=== PATIENT | female | born 1995 | race Caucasian/White ===

== ENCOUNTER 2025-01-09 20:14 | Inpatient (IN) | payer OTHER ==
--- NOTE | 2025-01-09 21:48 | RAD REPORT ---
EXAMINATION: Transvaginal Study Probe CLINICAL INDICATION: Pelvic pain. Left pelvic pain TECHNIQUE: Real-time ultrasonography of the pelvis was performed transvaginally. Color and spectral D oppler evaluation of the ovaries was performed. COMPARISON: No prior exam. FINDINGS: The uterus measures 7 x 2 x 3 cm The endometrial stripe is poorly visualized but does not appear to be a fibroid seen. Right ovary normal in size and echotexture. Left ovary normal in size and echotexture. Normal blood flow in each ovary. Right and left adnexa unremarkable No significant free fluid IMPRESSION: Unremarkable pelvic ultrasound
[2025-01-09 21:59] LABS: Absolute Eosinophils 0.3 K/uL (0-0.5); Absolute Monocytes 0.6 K/uL (0.1-1.3); Absolute Neutrophil 12.4 K/uL (1.8-8.0); Basophils % 0.2 % (0-1.3); Hematocrit 39.4 % (36.0-45.0); Hemoglobin 13.1 g/dL (12.0-15.0); Lymphocytes % 13.1 % (15.3-44.8); MCH 29.7 pg (27.0-35.0); MCHC 33.3 g/dL (32.0-36.0); MCV 89.4 fL (80-100); MPV 8.4 fL (7.6-11.3); Monocytes % 4.1 % (3.3-12.3); Neutrophils % 80.6 % (41.7-73.7); Platelets 329 thou/uL (152-406); RBC Red Blood Cell Count 4.41 M/uL (3.86-4.86); Red Cell Distribution Width 12.8 % (12.1-15.2)
[2025-01-09 22:04] LABS: Specific Gravity 1.005 (1.005-1.030)
[2025-01-09 22:05] LABS: Specific Gravity 1.005 (1.005-1.030); Sqamous Epithelial <5 /HPF (None Seen); Urine Bacteria <20 /HPF (<20); Urine Bilirubin NEGATIVE (Negative); Urine Blood Negative (Negative); Urine Clarity Turbid (Clear); Urine Color Colorless (Yellow); Urine Crystals Unidentified Few /HPF (None Seen); Urine Culture Reflex Order NOT NEEDED; Urine Glucose NEGATIVE (Negative); Urine Ketones NEGATIVE (Negative); Urine Microscopic Reflex YN ORDER UMIC; Urine Nitrite NEGATIVE (Negative); Urine Protein NEGATIVE (Negative); Urine RBC <5 /HPF (None Seen); Urine Urobilinogen Normal (Normal); Urine WBC <5 /HPF (<5); Urine Yeast (Budding) Trace /HPF (None Seen)
[2025-01-09 22:20] LABS: Albumin 3.7 g/dL (3.4-5.0); Albumin/Globulin Ratio 0.9 (1.1-1.8); Anion Gap 7.7 mEq/L (5.0-15.0); Bilirubin Total 0.4 mg/dL (0.2-1.0); Globulin 4.1 g/dL (2.3-3.5); Potassium 3.7 mEq/L (3.5-5.1); Protein, Total 7.8 g/dL (6.4-8.2)
[2025-01-09] MEDS ORDERED: KETOROLAC 30 MG/ML INJ ONE (23:12)
[2025-01-09] MEDS ORDERED: DICYCLOMINE HCL 10 MG CAP ONE (23:12)
[2025-01-09] MEDS ORDERED: NA CHLORIDE 0.9% 1,000 ML ONE (23:13)
[2025-01-09] MEDS ORDERED: METOCLOPRAMIDE 5 MG TAB ONE (23:13)
--- NOTE | 2025-01-10 00:43 | ER ---
Nurse's Notes [facility] Name: Saba Gibbons Age: 29 yrs Sex: Female : 1995 Arrival Date: 01/09/2025 Time: 20:14 Bed 7 Private MD: Diagnosis: Acute appendicitis with localized peritonitis Presentation: 01/09 20:45 Chief complaint: Patient states: LEFT FLANK PAIN AND RADIATES TO LOWER ABDOMEN. FOR THE br2 LAST 2 DAYS. WORSE TODAY. PT WAS SENT TO ER BY URGENT CARE. DENIES N/V/D. 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 Coronavirus screen: Client denies travel out of the [place] in the last 14 days. Ebola Screen: Patient denies exposure to infectious person. Initial Sepsis Screen: Does the patient meet any 2 criteria? No. Patient's initial sepsis screen is negative. Does the patient have a suspected source of infection? No. Patient's initial sepsis screen is negative. Risk Assessment: Do you want to hurt yourself or someone else? Patient reports no desire to harm self or others. Onset of symptoms was January 07, 2025. 20:45 Method Of Arrival: Ambulatory br2 20:45 Acuity: AISHA 3 br2 Triage Assessment: 20:48 General: Appears in no apparent distress. comfortable, Behavior is calm, cooperative. br2 Pain: Complains of pain in left low back Pain radiates to right lower quadrant and left lower quadrant Pain currently is 7 out of 10 on a pain scale. GI: Reports lower abdominal pain, LEFT FLANK PAIN. 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 - Infectious Disease History:: Denies. - Social history:: Smoking status: Patient denies any tobacco usage or history of. Patient uses alcohol, occasionally. Patient/guardian denies using street drugs. - Family history:: not pertinent. Screenin/21 00:00 [facility] ED Fall Risk Assessment (Adult) History of falling in the last 3 months, jb4 including since admission No falls in past 3 months (0 pts) Confusion or Disorientation No (0 pts) Intoxicated or Sedated No (0 pts) Impaired Gait No (0 pts) Mobility Assist Device Used No (0 pt) Altered Elimination No (0 pt) Score/Fall Risk Level 0 - 2 = Low Risk Oriented to surroundings, Maintained a safe environment. Abuse screen: Denies threats or abuse. Nutritional screening: No deficits noted. Tuberculosis screening: No symptoms or risk factors identified. Assessment: 01/09 23:58 Reassessment: Patient appears in no apparent distress at this time. Patient and/or jb4 family updated on plan of care and expected duration. Pain level reassessed. Patient is alert, oriented x 3, equal unlabored respirations, skin warm/dry/pink. Vital Signs: 20:45 BP 128 / 95; Pulse 105; Resp 18; Temp 97.2; Pulse Ox 99% ; Weight 86.18 kg; Height 5 br2 ft. 1 in. ; Pain 7/10; 23:59 BP 133 / 90; Pulse 91; Resp 16; Pulse Ox 99% on R/A; jb4 01/10 03:15 BP 101 / 68; Pulse 80; Resp 18 S; Pulse Ox 98% on R/A; Pain 0/10; br2 01/09 20:45 Body Mass Index 35.90 (86.18 kg, 154.94 cm) br2 01/09 20:45 Pain Scale: Adult br2 01/10 03:15 Pain Scale: Adult br2 Yudy Coma Score: 00:42 Eye Response: spontaneous(4). Motor Response: obeys commands(6). Verbal Response: sp4 oriented(5). Total: 15. ED Course: 01/09 20:21 Patient arrived in ED. im 20:23 Augusto Lance MD is Attending Physician. sp4 20:48 Triage completed. br2 20:48 Arm band placed on. br2 21:31 Transvaginal Study Probe In Process Unspecified. EDMS 21:52 CBC with Diff Sent. af3 21:52 CMP Sent. af3 21:52 Lipase Sent. af3 21:52 Test, Urine Sent. af3 21:52 Urinalysis w/ reflexes Sent. af3 21:52 Inserted saline lock: 20 gauge in right antecubital area, using aseptic technique. af3 Blood collected. Flushed with 10 mL NS. 21:52 Initial lab(s) drawn, by me, sent to lab. af3 22:39 Raza, Kiya, YELITZA is Primary Nurse. ld1 22:44 CT Abd/Pelvis - IV Contrast Only In Process Unspecified. EDMS 01/10 00:00 Patient has correct armband on for positive identification. Allergy band placed. Bed in jb4 low position. Call light in reach. Side rails up X 1. Provided Education on: plan of care. 00:42 Joaquim Gage MD is Hospitalizing Provider. sp4 01:31 Inserted saline lock: 22 gauge in left hand, using aseptic technique. br2 Administered Medications: 01/09 23:18 Drug: TORadol - Ketorolac IVP 30 mg IVP once Route: IVP; Site: right antecubital; jb4 23:59 Follow up: Response: No adverse reaction; Marked relief of symptoms jb4 01/10 00:30 Follow up: Response: No adverse reaction br2 01/09 23:18 Drug: MetoCLOPramide PO 10 mg PO once Route: PO; jb4 23:59 Follow up: Response: No adverse reaction; Marked relief of symptoms jb4 23:19 Drug: NS 0.9% IV 1000 ml IV at 1 bolus Per protocol; to be given as a bolus over 60 jb4 minutes Route: IV; Rate: 1 bolus; Site: left antecubital; 01/10 00:30 Follow up: Response: No adverse reaction; IV Status: Completed infusion; IV Intake: br2 1000ml 01/09 23:19 Drug: Dicyclomine PO 20 mg PO once Route: PO; jb4 23:59 Follow up: Response: No adverse reaction; Marked relief of symptoms jb4 01/10 01:30 Drug: metroNIDAZOLE IVPB 500 mg 100 ml IVPB at 200 ml/hr once over 30 mins Volume: 100 br2 ml; Route: IVPB; Rate: 200 ml/hr; Infused Over: 30 mins; Site: right antecubital; 02:16 Follow up: Response: No adverse reaction; IV Status: Completed infusion; IV Intake: br2 100ml 01:31 Drug: D5-1/2 NS IV 1000 ml IV at calculated rate continuous Route: IV; Rate: calculated br2 rate; Site: left hand; 02:16 Drug: Ciprofloxacin IVPB 400 mg 200 ml IVPB once over 60 mins Volume: 200 ml; Route: br2 IVPB; Infused Over: 60 mins; Site: left hand; 03:35 Follow up: Response: No adverse reaction; IV Status: Completed infusion; IV Intake: br2 200ml Intake: 00:30 IV: 1000ml; Total: 1000ml. br2 02:16 IV: 100ml; Total: 1100ml. br2 03:35 IV: 200ml; Total: 1300ml. br2 Outcome: 00:42 Decision to Hospitalize by Provider. sp4 08:51 Patient left the ED. Signatures: Dispatcher [employer] EDMS Marcella Sotelo RN RN Mohan Agrawal RN RN jb4 Kiya Raza RN RN ld1 Augusto Lance MD MD sp4 Cecille Barraza Belinda, RN RN br2 Jenifer Obregon
--- NOTE | 2025-01-10 00:43 | EDPHYS ---
Physician Documentation [facility] Name: Saba Gibbons Age: 29 yrs Sex: Female : 1995 Arrival Date: 01/09/2025 Time: 20:14 Bed 7 Private MD: ED Physician Augusto Lance HPI: 01/09 20:23 This 29 yrs old Female presents to ER via Unassigned with complaints of sp4 Abdominal Pain. 01/10 00:42 29-year-old female presents with acute onset of lower pelvic abdominal pain starting in sp4 the afternoon. Patient had to be sent home from work secondary to worsening pain. Reports left-sided pain more than the right.. 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 - Infectious Disease History:: Denies. - Social history:: Smoking status: Patient denies any tobacco usage or history of. Patient uses alcohol, occasionally. Patient/guardian denies using street drugs. - Family history:: not pertinent. ROS: 01/10 00:42 Constitutional: Negative for fever, chills, and weight loss, Abdomen/GI: Positive lower sp4 abdominal and bilateral pelvic pain. All other systems are negative, Exam: 00:42 Constitutional: This is a well developed, well nourished patient who is awake, alert, sp4 and in no acute distress. Head/Face: Normocephalic, atraumatic. Eyes: Pupils equal round and reactive to light, extra-ocular motions intact. Lids and lashes normal. Conjunctiva and sclera are not injected. Cornea within normal limits. Periorbital areas with no swelling, redness, or edema. ENT: Nares patent. No nasal discharge, no septal abnormalities noted. Tympanic membranes are normal and external auditory canals are clear. Oropharynx with no redness, swelling, or masses, exudates, or evidence of obstruction, uvula midline. Mucous membranes moist. Neck: Trachea midline, no thyromegaly or masses palpated, and no cervical lymphadenopathy. Supple, full range of motion without nuchal rigidity, or vertebral point tenderness. Chest/axilla: Normal chest wall appearance and motion. Nontender with no deformity. No lesions are appreciated. Cardiovascular: Regular rate and rhythm with a normal S1 and S2. No gallops, murmurs, or rubs. Normal PMI, no JVD. No pulse deficits. Respiratory: Lungs have equal breath sounds bilaterally, clear to auscultation and percussion. No rales, rhonchi or wheezes noted. No increased work of breathing, no retractions or nasal flaring. Abdomen/GI: Soft abdomen, hypoactive bowel sounds, bilateral pelvic and lower abdominal tenderness associated with positive rebound sign. Back: No spinal tenderness. No costovertebral tenderness. Skin: Warm, dry with normal turgor. Normal color with no rashes, no lesions, and no evidence of cellulitis. MS/ Extremity: Pulses equal, no cyanosis. Neurovascular intact. Full, normal range of motion. Neuro: Awake and alert, GCS 15, oriented to person, place, time, and situation. Cranial nerves II-XII grossly intact. Motor strength 5/5 in all extremities. Sensory grossly intact. Psych: Awake, alert, with orientation to person, place and time. Behavior, mood, and affect are within normal limits Vital Signs: 01/09 20:45 BP 128 / 95; Pulse 105; Resp 18; Temp 97.2; Pulse Ox 99% ; Weight 86.18 kg; Height 5 br2 ft. 1 in. ; Pain 7/10; 23:59 BP 133 / 90; Pulse 91; Resp 16; Pulse Ox 99% on R/A; jb4 01/10 03:15 BP 101 / 68; Pulse 80; Resp 18 S; Pulse Ox 98% on R/A; Pain 0/10; br2 01/09 20:45 Body Mass Index 35.90 (86.18 kg, 154.94 cm) br2 01/09 20:45 Pain Scale: Adult br2 01/10 03:15 Pain Scale: Adult br2 Yudy Coma Score: 00:42 Eye Response: spontaneous(4). Motor Response: obeys commands(6). Verbal Response: sp4 oriented(5). Total: 15. MDM: 01/09 20:24 Medical Screening Exam initiated sp4 01/10 00:38 ED course: End of Addendum EXAM: CTAbdomen and Pelvis With Intravenous Contrast sp4 CLINICAL HISTORY: The patient is 29 years old and is Female; ABD PAIN TECHNIQUE: Axial computed tomography images of the abdomen and pelvis with intravenous contrast. Sagittal and coronal reformatted images were created and reviewed. This CT exam was performed using one or more of the following dose reduction techniques: automated exposure control, adjustment of the mA and/or kV according to patient size, and/or use of iterative reconstruction technique. COMPARISON: No relevant prior studies available. FINDINGS: ARTIFACTS: The exam is suboptimal secondary to motion artifact. LUNG BASES: Unremarkable. No mass. No consolidation. ABDOMEN: LIVER: The liver is enlarged and fatty. GALLBLADDER AND BILE DUCTS: No calcified stones. No ductal dilation. PANCREAS: No ductal dilation. No mass. SPLEEN: Unremarkable. ADRENALS: Unremarkable. No mass. KIDNEYS AND URETERS: Unremarkable. The kidneys enhance symmetrically. No obstructing renal or ureteral calculus is seen. No hydronephrosis or hydroureter. No perinephric fluid or stranding. STOMACH AND BOWEL: The stomach is distended with food contents. The small bowel is normal in caliber. Was present throughout the colon. There is no mucosal thickening or evidence of obstruction. PELVIS: APPENDIX: The appendix measures up to 0.9 cm. Suggestion of minimal surrounding inflammation is noted. BLADDER: Unremarkable. No mass. REPRODUCTIVE: The right ovary measures 1.8 cm. No follow-up imaging is recommended. The uterus and left ovary normal. ABDOMEN and PELVIS: INTRAPERITONEAL SPACE: Unremarkable. No free air. No significant fluid collection. BONES/JOINTS: No acute fracture. SOFT TISSUES: The soft tissues are normal. VASCULATURE: Unremarkable. No abdominal aortic aneurysm. LYMPH NODES: Unremarkable. No enlarged lymph nodes. IMPRESSION: Upper limits of normal in size appendix with suggestion of minimal surrounding inflammation. Findings can be seen with early acute appendicitis in the appropriate clinical setting. Electronically signed by: Michelle Ramirez MD 01/10/2025 12:11 AM CDT . ED course: EXAMINATION: Transvaginal Study Probe CLINICAL INDICATION: Pelvic pain. Left pelvic pain TECHNIQUE: Real-time ultrasonography of the pelvis was performed transvaginally. Color and spectral Doppler evaluation of the ovaries was performed. COMPARISON: No prior exam. FINDINGS: The uterus measures 7 x 2 x 3 cm The endometrial stripe is poorly visualized but does not appear to be a fibroid seen. Right ovary normal in size and echotexture. Left ovary normal in size and echotexture. Normal blood flow in each ovary. Right and left adnexa unremarkable No significant free fluid IMPRESSION: Unremarkable pelvic ultrasound . 00:44 Differential diagnosis: appendicitis, Endometriosis, gastritis, non-specific abd pain, sp4 Ovarian Torsion. Data reviewed: vital signs, nurses notes, lab test result(s), radiologic studies, CT scan, ultrasound. Consideration of Admission/Observation Patient was admitted/placed on observation. Escalation of care including admission/observation considered. Management of patient was discussed with the following: Hospitalist: Too GERARDO . Dimension Specification Inspector: Umesh GERARDO . ED course: Patient stable for admission for acute appendicitis.. 01/09 21:01 Order name: CBC with Diff; Complete Time: 00:29 sp4 01/09 21:01 Order name: CMP; Complete Time: 00:29 sp4 01/09 21:01 Order name: Lipase; Complete Time: 00:29 sp4 01/09 21:01 Order name: Test, Urine; Complete Time: 00:29 sp4 01/09 21:01 Order name: Urinalysis w/ reflexes; Complete Time: 00:29 sp4 01/10 01:42 Order name: Urinalysis w/ reflexes EDMS 01/10 01:42 Order name: CBC with Automated Diff EDMS 01/10 01:42 Order name: CBC with Automated Diff EDMS 01/10 01:42 Order name: Comprehensive Metabolic Panel EDMS 01/10 01:42 Order name: Comprehensive Metabolic Panel EDMS 01/09 21:01 Order name: CT Abd/Pelvis - IV Contrast Only sp4 01/09 21:16 Order name: Transvaginal Study Probe; Complete Time: 00:29 EDMS 01/09 21:02 Order name: IV Saline Lock; Complete Time: 21:52 sp4 01/09 21:02 Order name: Labs collected and sent; Complete Time: 21:52 sp4 01/10 00:29 Order name: NPO; Complete Time: 01:30 sp4 Administered Medications: 01/09 23:18 Drug: TORadol - Ketorolac IVP 30 mg IVP once Route: IVP; Site: right antecubital; 4 23:59 Follow up: Response: No adverse reaction; Marked relief of symptoms jb4 01/10 00:30 Follow up: Response: No adverse reaction br2 01/09 23:18 Drug: MetoCLOPramide PO 10 mg PO once Route: PO; jb4 23:59 Follow up: Response: No adverse reaction; Marked relief of symptoms 23:19 Drug: NS 0.9% IV 1000 ml IV at 1 bolus Per protocol; to be given as a bolus over 60 jb4 minutes Route: IV; Rate: 1 bolus; Site: left antecubital; 01/10 00:30 Follow up: Response: No adverse reaction; IV Status: Completed infusion; IV Intake: br2 1000ml 01/09 23:19 Drug: Dicyclomine PO 20 mg PO once Route: PO; jb4 23:59 Follow up: Response: No adverse reaction; Marked relief of symptoms jb4 01/10 01:30 Drug: metroNIDAZOLE IVPB 500 mg 100 ml IVPB at 200 ml/hr once over 30 mins Volume: 100 br2 ml; Route: IVPB; Rate: 200 ml/hr; Infused Over: 30 mins; Site: right antecubital; 02:16 Follow up: Response: No adverse reaction; IV Status: Completed infusion; IV Intake: br2 100ml 01:31 Drug: D5-1/2 NS IV 1000 ml IV at calculated rate continuous Route: IV; Rate: calculated br2 rate; Site: left hand; 02:16 Drug: Ciprofloxacin IVPB 400 mg 200 ml IVPB once over 60 mins Volume: 200 ml; Route: br2 IVPB; Infused Over: 60 mins; Site: left hand; 03:35 Follow up: Response: No adverse reaction; IV Status: Completed infusion; IV Intake: br2 200ml Disposition Summary: 01/10/25 00:42 Hospitalization Ordered Notes: Hospitalization Status: Observation sp4 Provider: Joaquim Gage sp4 Condition: Stable sp4 Problem: new sp4 Symptoms: have improved sp4 Bed/Room Type: Standard sp4 Location: [facility] ER HOLD(01/10/25 01:10) rv1 Room Assignment: ERHOLD-(01/10/25 01:10) rv1 Diagnosis - Acute appendicitis with localized peritonitis sp4 Forms: - Medication Reconciliation Form sp4 - SBAR form sp4 - Leadership Thank You Letter sp4 Signatures: Dispatcher [employer] Mohan Bunch RN RN jb4 Caitlin Estrada rv1 Augusto Lance MD MD sp4 Rebecca Razo, RN RN br2 Corrections: (The following items were deleted from the chart) 01/09 21: 21:02 CBC+H.LAB.BRZ ordered. EDMS EDMS : 21:02 COMPREHENSIVE METABOLIC PANEL+C.LAB.BRZ ordered. EDMS EDMS : 21:02 LIPASE+C.LAB.BRZ ordered. EDMS EDMS : 21:02 Test, Urine+UC.LAB.BRZ ordered. EDMS EDMS 21: 21:02 Urinalysis+U.LAB.BRZ ordered. EDMS EDMS 21: 21:02 Abdomen Pelvis W Con+CT.RAD.BRZ ordered. EDMS EDMS 21: 21:03 Pelvis Complete+US.RAD.BRZ ordered. EDMS EDMS 01/10 01:10 00:42 Telemetry/MedSurg (observation) sp4 rv1 01:10 00:42 sp4 rv1
[2025-01-10] MEDS ORDERED: CIPROFLOXACIN 400mg IV 400 MG/200 ML BAG IV ONE (01:01)
[2025-01-10] MEDS ORDERED: METRONIDAZOLE 500mg IVPB 500 MG/100 ML BAG IV ONE (01:01)
[2025-01-10] MEDS ORDERED: D5 0.45 NS 1,000 ML IV ONE (01:02)
--- NOTE | 2025-01-10 01:29 | P.HP ---
Certification for Inpatient Patient admitted to: Observation With expected LOS: <2 Midnights Practitioner: I am a practitioner with admitting privileges, knowledge of patient current condition, hospital course, and medical plan of care. Services: Services provided to patient in accordance with Admission requirements found in Title 42 Section 412.3 of the Code of Federal Regulations Patient History Date of Service: 01/10/25 Reason for admission: Pain Abdominal History of Present Illness: 29 yrs old Female with past medical history of depression, came in with abdominal pain which started this morning. Pain is located in the lower abdomen. Radiating to right lower quadrant. Associated nausea but no vomiting. No fever or chills. No sick contacts. No previous surgical history. Pain is sharp 6 out of 10 in severity. Nonradiating. Patient is seen in the ER and is admitted for further management of acute appendicitis Home medications list reviewed: Yes - Past Medical/Surgical History Past Medical History: Reviewed- Non-Contributory Past Surgical History: Reviewed- Non-Contributory - Family History Family History: Reviewed- Non-Contributory - Social History Smoking Status: Never smoker Review of Systems 10-point ROS is otherwise unremarkable Physical Examination - Vital Signs Temperature: 97.8 F Blood Pressure: 124/78 Pulse: 78 Respirations: 18 Pulse Ox (%): 94 - Physical Exam General: Alert, In no apparent distress HEENT: Atraumatic, Normocephalic Neck: Supple, 2+ carotid pulse no bruit Respiratory: Clear to auscultation bilaterally, Normal air movement Cardiovascular: Regular rate/rhythm, Normal S1 S2 Capillary refill: <2 Seconds Gastrointestinal: Soft and benign, W/out hepatosplenomegaly, Tenderness Musculoskeletal: No clubbing, No swelling Integumentary: No rashes, No tenderness/swelling Neurological: Normal speech, Normal strength at 5/5 x4 extr, Cranial nerves 3-12 intact Lymphatics: No axilla or inguinal lymphadenopathy - Studies Laboratory Data (last 24 hrs) 01/09/25 01/09/25 21:48 21:48 WBC 15.40 H Hgb 13.1 Hct 39.4 Plt Count 329 Sodium 137 Potassium 3.7 BUN 10 Creatinine 0.75 Glucose 132 H Total Bilirubin 0.4 AST 13 L ALT 23 Alkaline Phosphatase 96 Lipase 18 Assessment and Plan - Problems (Diagnosis) (1) Acute appendicitis Current Visit: Yes Status: Acute Plan: Acute appendicitis Pain control N.p.o. IV hydration IV antibiotic Surgical consult GI/DVT prophylaxis Advance Directive : Full Code Discharge Plan: Home Plan to discharge in: 48 Hours - Advance Directives Does patient have a Living Will: No Does patient have a Durable POA for Healthcare: No - Code Status/Comfort Care Code Status: Full Code Time Spent Managing Pts Care (In Minutes): 54
[2025-01-10] MEDS ORDERED: ACETAMINOPHEN 325 MG TABLET PO PRN (01:36)
[2025-01-10] MEDS ORDERED: ONDANSETRON 4 MG/2 ML VIAL IV PRN (01:36)
[2025-01-10] MEDS ORDERED: PIPER TAZO 3.375 GM in NA CHLORIDE 0.9% 100 ML IV SCH (01:41)
[2025-01-10] MEDS ORDERED: MORPHINE 2 MG/ML SYR IV PRN (01:41)
[2025-01-10] MEDS: NA CHLORIDE 0.9% 1,000 ML IV SCH (02:00)
--- NOTE | 2025-01-10 03:05 | RAD REPORT ---
ADDENDUM #1 THIS REPORT CONTAINS FINDINGS THAT MAY BE CRITICAL TO PATIENT CARE: I communicated the above findings by telephone with Dr. Augusto Lance MD on 01/10/2025 12:31 AM CDT who demonstrated understanding of the above finding(s)/recommendation(s). Electronically signed by: Michelle Ramirez MD 01/10/2025 12:31 AM CDT RP End of Addendum EXAM: CT Abdomen and Pelvis With Intravenous Contrast CLINICAL HISTORY: The patient is 29 years old and is Female; ABD PAIN TECHNIQUE: Axial computed tomography images of the abdomen and pelvis with intravenous contrast. Sagittal an d coronal reformatted images were created and reviewed. This CT exam was performed using one or more of the following dose reduction techniques: automated exposure control, adjustment of the mA a nd/or kV according to patient size, and/or use of iterative reconstruction technique. COMPARISON: No relevant prior studies available. FINDINGS: ARTIFACTS: The exam is suboptimal secondary to motion artifact. LUNG BASES: Unremarkable. No mass. No consolidation. ABDOMEN: LIVER: The liver is enlarged and fatty. GALLBLADDER AND BILE DUCTS: No calcified stones. No ductal dilation. PANCREAS: No ductal dilation. No mass. SPLEEN: Unremarkable. ADRENALS: Unremarkable. No mass. KIDNEYS AND URETERS: Unremarkable. The kidneys enhance symmetrically. No obstructing renal or ure teral calculus is seen. No hydronephrosis or hydroureter. No perinephric fluid or stranding. STOMACH AND BOWEL: The stomach is distended with food contents. The small bowel is normal in [place]. Was present throughout the colon. There is no mucosal thickening or evidence of obstruction. PELVIS: APPENDIX: The appendix measures up to 0.9 cm. Suggestion of minimal surrounding inflammation is n oted. BLADDER: Unremarkable. No mass. REPRODUCTIVE: The right ovary measures 1.8 cm. No follow-up imaging is recommended. The uterus an d left ovary normal. ABDOMEN and PELVIS: INTRAPERITONEAL SPACE: Unremarkable. No free air. No significant fluid collection. BONES/JOINTS: No acute fracture. SOFT TISSUES: The soft tissues are normal. VASCULATURE: Unremarkable. No abdominal aortic aneurysm. LYMPH NODES: Unremarkable. No enlarged lymph nodes. IMPRESSION: Upper limits of normal in size appendix with suggestion of minimal surrounding inflammation. Findin gs can be seen with early acute appendicitis in the appropriate clinical setting. Electronically signed by: Michelle Ramirez MD 01/10/2025 12:11 AM CDT RP Due to temporary technical issues with the PACS/[facility] reporting system, reports are being scarlet d by the in-house radiologist without review as a courtesy to ensure prompt reporting the interpreting radiologist is fully responsible for the content of the report. Transcribed Date/Time: 01/10/2025 3:05 AM
[2025-01-10 04:11] VITALS: BMI 35.9
[2025-01-10] MEDS ORDERED: NA CHLORIDE 0.9% 1,000 ML ONE (04:22)
[2025-01-10] MEDS ORDERED: ONDANSETRON 4 MG/2 ML VIAL ONE ×2 (07:41→09:01)
[2025-01-10] MEDS ORDERED: LIDOCAINE 2% MPF 5 ML VIAL ONE ×2 (07:41→09:01)
[2025-01-10] MEDS ORDERED: ROCURONIUM 50 MG/5 ML VIAL IV ONE ×2 (07:42→09:01)
[2025-01-10] MEDS ORDERED: propofoL 200 MG/20 ML VIAL IV ONE ×2 (07:42→09:01)
[2025-01-10] MEDS ORDERED: FENTANYL CITR 100 MCG/2 ML ONE ×2 (07:42→09:01)
[2025-01-10] MEDS ORDERED: MIDAZOLAM HCL 2 MG/2 ML INJ ONE ×2 (07:42→09:01)
[2025-01-10] MEDS: SUGAMMADEX SODIUM 200 MG/2 ML VIAL IV ONE (07:44)
[2025-01-10] MEDS: SUCCINYLCHOLINE 20 MG/ML (10 ML) IV ONE (07:45)
--- NOTE | 2025-01-10 08:22 | PREOPCON ---
Date of Consultation: 01/10/2025 Reason: Abdominal pain. History Of Present Illness: This is a 29-year-old female who comes in with acute onset of lower abdo latrell pain. She denies any nausea or vomiting. No diarrhea or constipation. No blood in her stool. No dysuria, hematuria. No sore throat, runny nose, cough, headaches, or dizziness. No chest pain. No fever or chills. The patient denies any anorexia and last menstrual period was 1 week ago, it w as normal. Review of Systems: Otherwise unremarkable. Past Medical History: Negative. Past Surgical History: Dental surgeries. Allergies: INCLUDE PENICILLIN. Social History: The patient does not smoke. Drinks alcohol occasionally. Family History: Noncontributory. Physical Examination: Vital Signs: Stable. She is currently afebrile. General: She is awake, alert, and oriented x3. Head and Neck: No neck masses. No JVD. Throat clear. Neck is supple. Chest: Clear. Heart: S1, S2. Abdomen: Soft, nondistended. Positive bowel sounds. Positive right lower quadrant tenderness with rebound. No rigidity or guarding. No Rovsing sign. Extremities: Adequately perfused. Nontender. Neuro: Nonfocal. Laboratory Data: Shows a white count to be 15.4 with a left shift. Chemistry reviewed, essentially unremarkable. CT of the abdomen and pelvis and transvaginal ultrasound reviewed, essentially the fin dings are consistent with early acute appendicitis. No pelvic disease was identified on the ultrasou nd. Assessment: Acute appendicitis. Plan: Admit, n.p.o., IV fluid, IV antibiotics to the OR for laparoscopic appendectomy, possible open . The patient understands risks, benefits, and alternatives and agrees to procedure. /MODL Voice ID: [id number] Report ID: [id number]
[2025-01-10] MEDS: METRONIDAZOLE 500mg IVPB 500 MG/100 ML BAG IV ONE (08:59)
[2025-01-10] MEDS: METRONIDAZOLE 500mg IVPB 500 MG/100 ML BAG IV SCH (09:00)
[2025-01-10] MEDS: ENOXAPARIN 40 MG/0.4 ML SQ SCH (09:00)
[2025-01-10] MEDS: AZTREONAM 1 GM in NA CHLORIDE 0.9% 100 ML IV SCH (09:00)
[2025-01-10] MEDS ORDERED: KETOROLAC 30 MG/ML INJ ONE (09:01)
[2025-01-10] MEDS ORDERED: dexAMETHasone 10 MG/ML VIAL ONE (09:01)
[2025-01-10] MEDS: BUPIVACAINE 0.5% PF 10 ML VIAL ONE (09:30)
[2025-01-10] MEDS ORDERED: GLYCOPYRROLATE 0.2 MG/ML SYR ONE (09:42)
[2025-01-10] MEDS ORDERED: NEOSTIGMINE 1 MG/ML -10 ML VIAL ONE (09:42)
--- NOTE | 2025-01-10 10:06 | P.OP ---
Date of Service: 01/10/25 Preop diagnosis: Acute appendicitis Postop diagnosis: Same Procedure performed: Laparoscopic appendectomy Surgeon: Bib Calvo MD [employer] Specialist: Zamzam MADDEN Estimated blood loss: Minimal Specimen: Appendix Findings: As above Anesthesia: General Complications: None Drains: None Fluids and blood products: Nonapplicable Disposition: Recovery room Operative note: Patient brought to the OR and placed in supine position. General anesthesia began. Patient prepped and draped in usual sterile fashion. Marcaine 0.5% infiltrated locally. 15 blade used to make a 1 cm supraumbilical midline incision. Subcutaneous tissue divided and bleeding controlled with cautery. Fascia identified and divided. #1 Vicryl stay suture placed. Peritoneal cavity entered with sharp and blunt dissection. 12 mm trocar placed into the peritoneal cavity under direct vision. Pneumoperitoneum established. Two 5 mm trocars placed under direct vision. 1 trocar placed in the suprapubic region and the other 1 in the left lower quadrant. Laparoscopy revealed acute appendicitis with inflammation. No other evidence of disease identified. LigaSure used to divide the mesoappendix. Base of the appendix divided with Endo NAHID stapling device on the cecum. The appendix retrieved to the umbilicus via Endo Catch bag. Pneumoperitoneum reestablished. Right lower quadrant irrigated and bleeding controlled with vascular clip at the staple line. There was minimal oozing noted. After the clips were placed, no evidence of bleeding was noted. There was no evidence of bleeding or bowel injury appreciated. All trocars were removed under direct vision. Stay sutures tied to each other to reapproximate the fascial defect. Subcutaneous wounds irrigated and bleeding controlled cautery. 3-0 chromic used to reapproximate subcutaneous tissue and close skin. Sterile dressing applied. Patient awakened and taken to recovery room in good general condition. CC:
[2025-01-10] MEDS ORDERED: HYDROMORPHONE HCL 1 MG/ML INJ IV PRN (10:26)
[2025-01-10 12:25] VITALS: BP 106/64; TEMP 97.6
[2025-01-10] MEDS: HYDROCODONE/APAP 7.5/325 MG TAB PO PRN (14:17)
[2025-01-10 15:38] VITALS: O2SAT 99
== END 2025-01-10 16:46 | disposition home or self-care (01) | DRG 399 ==
LOC: ER 20:14 → ERHOLD 01-10 01:36 → 2ND 01-10 10:27
PROVIDERS: ADMIT Family Medicine; ATTEND Hospitalist
PROC: 0DTJ4ZZ Resection of Appendix, Percutaneous Endoscopic Approach (ICD-10-PCS; principal; 2025-01-10 09:00)
DX: K35.30 Acute appendicitis with localized peritonitis, without perforation or gangrene (principal); F32.A Depression, unspecified
CPT/HCPCS: 36415; 74177; 76830; 80053; 81001; 81025; 83690; 85025; 88304; 94010; 99284; A4314; J0744; J1100; J2003; J2250; J2405; J2704; J2710; J3010; J7030; J7799; Q9967